=== PATIENT | female | born 1955 | race Caucasian/White ===

== ENCOUNTER 2016-07-20 04:38 | Emergency (ER) | payer BC ==
--- NOTE | ~2016-07-20 | ER ---
PATIENT'S NAME: SUDHA MAHMOOD [facility] AGE: 61 Y [address] ROOM: [place] [id number] LOCATION: [facility] ADMIT DATE: 07/20/2016 ER/Outpatient Report DISCHARGE DATE: FAMILY PHYSICIAN: Mera Agarwal MD ATTENDING PHYSICIAN: Bebe Thompson Admission date and time documented in the medical record. I saw the patient at 0455 hours. CHIEF COMPLAINT: Generalized abdominal pain radiating around to her lower back. HISTORY OF PRESENT ILLNESS: The patient is a 61-year-old female, who has a 12-hour history of little kind of generalized abdominal pain that radiates around and through to her lower back. No nausea, vomiting, or diarrhea. She does not feel bloated or constipated. No urinary frequency, urgency, or dysuria. No fever, chills, or sweats. No recent coughs, colds, or flus. No falls or trauma. No lightheadedness, dizziness, syncope, or near syncope. No headache, eyes, ears, nose, throat, neck, or spine pain. No joint or muscle swelling, redness, or pain. No skin eruptions or rash. She does have some problems with depression, anxiety, headaches. No endocrine problems. Does have a history of irritable bowel with rectal spasm. HOME MEDICATIONS: See attached medication list. ALLERGIES: ERYTHROMYCIN. SOCIAL HISTORY: Nonsmoker, occasional intake of alcohol. SIGNIFICANT PAST MEDICAL HISTORY: Anxiety, depression, headaches, rectal spasm, irritable bowel syndrome. OPERATIONS: . REVIEW OF SYSTEMS: All systems reviewed by me are negative with the exception of those discussed in the history of present illness. PHYSICAL EXAMINATION: VITAL SIGNS: Temperature 98.6, tympanic; pulse 76; respirations 16; blood PATIENT'S NAME: SUDHA MAHMOOD [facility] AGE: 61 Y [address] ROOM: [place] [address] LOCATION: [facility] ADMIT DATE: 07/20/2016 ER/Outpatient Report DISCHARGE DATE: FAMILY PHYSICIAN: Mera Agarwal MD ATTENDING PHYSICIAN: Bebe Thompson pressure 171/79; O2 saturation on room air is 97%. HEAD: Normocephalic. EYES, EARS, NOSE, THROAT: Clear. Mucous membranes are moist. Neck: Negative. SPINE negative. LUNGS: Clear. Good air flow. No rales, rhonchi, or wheezes. HEART: Regular. Pulses are palpable. No chest wall or ribcage pain to palpation. No deformity. ABDOMEN: Soft, generalized tenderness, but no true guarding or rigidity. No rebound tenderness. Hyperactive bowel tones. No organomegaly or abnormal masses palpable. No CVA tenderness. EXTREMITIES: Intact. NEUROVASCULAR: Intact. SKIN: Clear. No skin eruptions or rash. LABORATORY DATA: Three-way abdominal x-ray showed no perforation, obstruction, acute lung infiltrate. White count was 11,600, 84 segs, 7 lymphs, 8 monos, hemoglobin was 12.6, hematocrit 38.8, platelet count is 227,000. Urine shows 0 whites, 2- 5 reds, 0-2 epithelial cells, negative bacteria per high-powered field, negative nitrites. Amylase and lipase: CMS, CRP, sedimentation rate are pending. I did go ahead and order a CT scan of the abdomen and pelvis with IV contrast. Results are pending. IMPRESSION: Generalized abdominal pain. Etiology uncertain at this time. PLAN: Transfer the patient's care over to Dr. Ritchie at shift change. I asked Dr. Ritchie to follow up with the remainder of the patient's lab results, CT scan of the abdomen and pelvis, results final diagnosis, and treatment plan. I have given the patient IV normal saline, fluids, fentanyl for pain, and Zofran for nausea. BEBE THOMPSON MD SDS/modl /[id number] d: 07/20/16 0635 t: 07/20/16 1819, OUTPATIENT REPORT
--- NOTE | ~2016-07-20 | ER ---
PATIENT'S NAME: GHAZAL MAHMOOD [facility] AGE: 61 Y [address] ROOM: [place] [address] LOCATION: [facility] ADMIT DATE: 07/20/2016 ER/Outpatient Report DISCHARGE DATE: 07/20/2016 FAMILY PHYSICIAN: Mera Agarwal MD ATTENDING PHYSICIAN: Nicholas Garces HISTORY OF PRESENT ILLNESS: Ghazal Mahmood is a 61-year-old female who presented this morning and has seen Dr. Garces. Please refer to his dictation. She has low abdominal pain which she describes as a pressure, but 9/10 pain. She had no nausea or vomiting. No fever or chills. No diarrhea. No blood in her stools. No other problems or concerns. Past medical history was reviewed. Abdominal tenderness was present. She was given an additional dose of fentanyl. I did follow up on her lab work and her CT scan. CT showed acute sigmoid diverticulitis, small pelvic ascites, no abscess or perforation, and small stable fat containing periumbilical hernia. UA is unremarkable. Chemistry panel is unremarkable. CRP elevated at 2.99. Amylase and lipase are normal. White count 11.6 with 84% neutrophils. Sedimentation rate is 10. IMPRESSION: Diverticulitis. PLAN: The patient would like to try outpatient therapy, so we will give her Zofran 4 mg one p.o. q.6 h. p.r.n. nausea, dispensed 6 with 0 refills; Cipro 500 mg b.i.d. for 7 days; metronidazole 500 mg q.6 h. for 7 days; [place] 5/325 one to two p.o. q.4-6 h. p.r.n. pain, dispensed 15 with 0 refills. Follow up with Dr. Agarwal in 1 to 3 days. Follow up sooner if any problems or concerns. DEDE MONTES MD CAR/modl /[id number] d: 07/20/16 1650 t: 07/20/16 1809, OUTPATIENT REPORT
[2016-07-20 04:55] LABS: BILIRUBIN URINE NEGATIVE (NEGATIVE); BLOOD URINE 10 /UL (NEGATIVE); COLOR URINE YELLOW (YELLOW); GLUCOSE URINE NEGATIVE (NEGATIVE); KETONE URINE NEGATIVE (NEGATIVE); LEUKOCYTES URINE NEGATIVE /UL (NEGATIVE); NITRITE URINE NEGATIVE (NEGATIVE); PROTEIN URINE NEGATIVE (NEGATIVE); TURBIDITY URINE CLEAR (CLEAR); UROBILINOGEN URINE NORMAL (NORMAL)
[2016-07-20 05:03] LABS: BACTERIA URINE NEGATIVE (NEGATIVE); EPITHELIAL URINE 0-2 #/HPF (NEGATIVE); WBC URINE NEGATIVE #/HPF (NEGATIVE)
[2016-07-20 05:45] LABS: BASOPHIL % 0.3 %; EOSINOPHIL % 0.1 %; HEMATOCRIT 38.8 % (33.0-46.0); HEMOGLOBIN 12.6 g/dL (10.0-15.0); IMMATURE GRANULOCYTE # 0.1 K/uL (0.0-0.3); IMMATURE GRANULOCYTE % 0.4 %; LYMPHOCYTE # 0.8 K/uL (0.8-4.0); MCH 30.8 pg (27.0-34.0); MCHC 32.5 gm/dL (32.0-36.5); MCV 94.9 fl (83.0-98.0); MONOCYTE # 0.9 K/uL (0.0-1.0); MONOCYTE % 7.9 %; NEUTROPHIL # (ANC) 9.8 K/uL (1.8-7.8); NEUTROPHIL % 84.3 %; NRBC % 0 /100WBC (0-0.00); PLATELET COUNT 227 K/uL (150-450); RBC 4.09 M/uL (3.50-5.50); WBC 11.6 K/uL (4.0-11.0)
[2016-07-20 06:20] LABS: ALBUMIN 4.2 gm/dL (3.5-5.0); ALK PHOS 47 IU/L (33-138); ALT 51 IU/L (12-78); ANION GAP 12.7 (10.0-19.0); AST 35 IU/L (10-40); BLOOD UREA NITROGEN 14 mg/dL (6-24); CALCIUM 8.6 mg/dL (8.5-10.5); CHLORIDE 103 mMol/L (96-110); CO2 25 mMol/L (22-32); CREATININE 0.8 mg/dL (0.5-1.1); ESTIMATED GFR (MDRD EQUATION) > 60; POTASSIUM 3.7 mMol/L (3.7-5.1); SODIUM 137 mMol/L (135-145); TOTAL BILIRUBIN 1.1 mg/dL (0.0-1.5); TOTAL PROTEIN 7.5 g/dL (6.0-8.4)
== END 2016-07-20 07:58 | disposition disaster alternative care site (69) ==
LOC: GMED 04:38
PROVIDERS: Emergency Medicine
DX: K57.92 Diverticulitis of intestine, part unspecified, without perforation or abscess without bleeding (principal); K59.4 Anal spasm; F41.9 Anxiety disorder, unspecified; F32.9 Major depressive disorder, single episode, unspecified; R51 Headache; K58.9 Irritable bowel syndrome, unspecified; Z98.890 Other specified postprocedural states; Z88.1 Allergy status to other antibiotic agents
CPT/HCPCS: J2405; J3010; J7030; Q9967